=== PATIENT | male | born 1995 | race American Indian/Alaskan Native ===

== ENCOUNTER 2019-12-09 08:52 | Outpatient (CLI) | payer OTHER ==
[~2019-12-09 08:52] MED LIST: REGADENOSON 0.4 MG/5 ML INJ IV ONE
--- NOTE | 2019-12-13 10:17 | Treadmill Report ---
STRESS TEST REASON FOR STUDY: Chest pain. ORDERING PHYSICIAN: Dr. Mehrdad Polk. The patient exercised on Angel protocol for 14 minutes 27 seconds. The patient achieved max predicted heart rate of 166, which is 85% max predicted heart rate and max blood pressure was 145/72. Baseline blood pressure was 120/80, heart rate 54. The patient had no EKG changes or arrhythmia suggestive of ischemia. SUMMARY: Normal exercise stress test without evidence of ST changes or arrhythmia or chest pain during stress test recovery. Good exercise capacity for 14-1/2 minutes on Angel protocol. Appropriate heart rate and BP response in recovery and negative treadmill stress test. JOB# [id number] VRM/NTS
== END 2019-12-09 08:53 | disposition home or self-care (01) ==
LOC: CARD 08:52
PROVIDERS: ATTEND Internal Medicine Cardiovascular Disease
DX: R07.2 Precordial pain (principal)
CPT/HCPCS: 93017; J2785